=== PATIENT | female | born 1960 | race Caucasian/White ===

== ENCOUNTER 2022-10-30 10:33 | Emergency (ER) | payer BC ==
[2022-10-30] MEDS ORDERED: Aspirin 81 MG Tab.Chew PO ONE (11:43)
[2022-10-30 12:03] LABS: ESTIMATED GFR 16 mL/min (>60)
[2022-10-30] MEDS: Sodium Chloride 0.9% 250 ML IV SCH ×2 (12:45→16:45)
[2022-10-30] MEDS ORDERED: Acetaminophen 325 MG Tab PO ONE (17:03)
[2022-10-30] MEDS ORDERED: Acetaminophen 500 MG Tab PO ONE (17:06)
[2022-10-30] MEDS ORDERED: amLODIPine 5 MG Tab PO ONE (17:24)
[2022-10-30 17:41] VITALS: BP 177/73; PULSE 117
== END 2022-10-30 16:00 ==
LOC: FB.ED 10:33
DX: N39.0 Urinary tract infection, site not specified (principal); D64.9 Anemia, unspecified; E88.09 Other disorders of plasma-protein metabolism, not elsewhere classified; C64.9 Malignant neoplasm of unspecified kidney, except renal pelvis; I12.9 Hypertensive chronic kidney disease with stage 1 through stage 4 chronic kidney disease, or unspecified chronic kidney disease; E11.22 Type 2 diabetes mellitus with diabetic chronic kidney disease; N18.9 Chronic kidney disease, unspecified; N17.9 Acute kidney failure, unspecified; E78.00 Pure hypercholesterolemia, unspecified; Z79.4 Long term (current) use of insulin; Z79.899 Other long term (current) drug therapy
CPT/HCPCS: 36415; 36430; 80053; 86850; 86900; 86901; 86920; 86922; 99285; A9270-GY; J7050; P9016

== ENCOUNTER 2023-03-21 21:05 | Observation (INO) | payer BC ==
[2023-03-21] MEDS ORDERED: Sodium Chloride 0.9% 1,000 ML IV ONE (21:50)
[2023-03-21 22:08] LABS: BASOPHILS ABSOLUTE AUTO 0.1 x10-3/uL (0.0-0.1); BASOPHILS PERCENT AUTO 0.8 % (0.2-1.5); EOSINOPHILS ABSOLUTE AUTO 0.1 x10-3/uL (0.0-0.8); EOSINOPHILS PERCENT AUTO 1.3 % (0.6-8.1); HEMATOCRIT 27.7 % (34.2-48.2); HEMOGLOBIN 9.1 g/dL (11.4-15.5); LYMPHOCYTES ABSOLUTE AUTO 1.4 x10-3/uL (1.0-4.4); LYMPHOCYTES PERCENT AUTO 21.9 % (18.4-52.1); MEAN CORPUSCULAR HEMOGLOBIN 26.4 pg (23.9-33.9); MEAN CORPUSCULAR VOLUME 79.9 fL (76.7-100.5); MEAN PLATELET VOLUME 8.5 fL (7.1-12.4); MONOCYTES ABSOLUTE AUTO 0.6 x10-3/uL (0.3-1.0); MONOCYTES PERCENT AUTO 9.1 % (4.4-15.7); NEUTROPHILS ABSOLUTE AUTO 4.4 x10-3/uL (1.5-6.3); NEUTROPHILS PERCENT AUTO 66.9 % (30.8-76.2); PLATELET COUNT,PLT 163 x10(3)uL (151-488); RED BLOOD CELL COUNT 3.46 x10(6)uL (3.60-5.20); RED CELL DISTRIBUTION WIDTH 22.8 % (12.3-16.5); WHITE BLOOD CELL COUNT,WBC 6.6 x10-3/uL (3.0-10.3)
[2023-03-21 22:18] LABS: A/G RATIO 0.6; ALANINE AMINOTRANSFERASE,ALT 21 U/L (12-36); ALBUMIN 2.8 g/dL (3.2-4.6); ALKALINE PHOSPHATASE 84 IU/L (56-112); ASPARTATE AMNIOTRANSFERASE,AST 22 IU/L (5-25); BILIRUBIN TOTAL 0.4 mg/dL (0.1-1.3); BLOOD UREA NITROGEN,BUN 41 mg/dL (7-18); BUN/CREATININE RATIO 12.8 (9-20); CALCIUM 9.3 mg/dL (8.6-10.2); CARBON DIOXIDE,CO2 27 mmol/L (21-32); CHLORIDE,CL 101 mmol/L (100-110); CREATININE 3.2 mg/dL (0.55-1.02); EST CRCL DRUG DOSING (CG) 14.94 mL/min; ESTIMATED GFR 16 mL/min (>60); GLUCOSE RANDOM 100 mg/dL (80-116); POTASSIUM,K 4.4 mmol/L (3.5-5.3); PROTEIN TOTAL,TP 7.5 g/dL (6.0-8.0); SODIUM,NA 138 mmol/L (135-145)
[2023-03-21 23:05] LABS: BILIRUBIN,URINE NEGATIVE (NEGATIVE); GLUCOSE,URINE NORMAL (NORMAL); KETONES,URINE NEGATIVE (NEGATIVE); LEUKOCYTE ESTERASE,URINE LARGE (NEGATIVE); NITRITE,URINE NEGATIVE (NEGATIVE); OCCULT BLOOD,URINE LARGE (NEGATIVE); PROTEIN,URINE NEGATIVE (NEGATIVE); UROBILINOGEN,URINE NORMAL (NEGATIVE)
[2023-03-21 23:08] LABS: APPEARANCE,URINE SLIGHTLY CLOUDY (CLEAR); BACTERIA,URINE FEW (NS); COLOR,URINE YELLOW (YELLOW); SQUAMOUS EPITHELIAL CELLS,UR MODERATE (NS,R,O); WBC,URINE 40-50 (0-5)
[2023-03-22] MEDS ORDERED: D5 1/2 NS w/ 20 mEq/L KCl 1,000 ML IV SCH (00:15)
[2023-03-22] MEDS ORDERED: Dextrose 5%-0.45% NaCl 1,000 ML IV SCH (00:15)
[2023-03-22] MEDS ORDERED: Acetaminophen 325 MG Tab PO PRN (00:38)
[2023-03-22] MEDS ORDERED: Magnesium Hydroxide 400 MG/5 ML Susp 30 ML Cup PO PRN (00:38)
[2023-03-22] MEDS ORDERED: Insulin Glargine,Human Rec. Analog 100 Units/ML 3 ML Pen SUBCUT ONE ×2 (01:20→01:49)
[2023-03-22 06:34] LABS: BLOOD UREA NITROGEN,BUN 37 mg/dL (7-18); BUN/CREATININE RATIO 12.8 (9-20); CALCIUM 8.7 mg/dL (8.6-10.2); CARBON DIOXIDE,CO2 25 mmol/L (21-32); CHLORIDE,CL 104 mmol/L (100-110); EST CRCL DRUG DOSING (CG) 16.11 mL/min; ESTIMATED GFR 18 mL/min (>60); GLUCOSE RANDOM 167 mg/dL (80-116); POTASSIUM,K 4.1 mmol/L (3.5-5.3); SODIUM,NA 139 mmol/L (135-145)
[2023-03-22 06:45] LABS: CREATININE 2.9 mg/dL (0.55-1.02)
[2023-03-22] MEDS ORDERED: Levothyroxine 100 MCG Tab PO SCH (07:30)
[2023-03-22 08:30] VITALS: BP 154/72; PULSE 93
[2023-03-22] MEDS ORDERED: Sodium Chloride 0.9% 1,000 ML IV ONE (08:45)
[2023-03-22] MEDS ORDERED: PAZOPANIB HCL 200 MG PO SCH (09:00)
[2023-03-22] MEDS ORDERED: Simvastatin 20 MG Tab PO SCH (09:00)
[2023-03-22 10:24] LABS: BLOOD UREA NITROGEN,BUN 34 mg/dL (7-18); BUN/CREATININE RATIO 12.1 (9-20); CALCIUM 8.4 mg/dL (8.6-10.2); CARBON DIOXIDE,CO2 25 mmol/L (21-32); CHLORIDE,CL 105 mmol/L (100-110); EST CRCL DRUG DOSING (CG) 16.69 mL/min; ESTIMATED GFR 19 mL/min (>60); GLUCOSE RANDOM 206 mg/dL (80-116); POTASSIUM,K 4.1 mmol/L (3.5-5.3); SODIUM,NA 138 mmol/L (135-145)
[2023-03-22 10:26] LABS: CREATININE 2.8 mg/dL (0.55-1.02)
[2023-03-22] MEDS ORDERED: Insulin Glargine,Human Rec. Analog 100 Units/ML 3 ML Pen SUBCUT SCH (21:00)
== END 2023-03-22 11:25 | disposition home or self-care (01) ==
LOC: FB.ED 21:05 → FB.MS 23:49
PROVIDERS: ADMIT Family Medicine; ATTEND Family Medicine
DX: N17.9 Acute kidney failure, unspecified (principal); I12.9 Hypertensive chronic kidney disease with stage 1 through stage 4 chronic kidney disease, or unspecified chronic kidney disease; E11.22 Type 2 diabetes mellitus with diabetic chronic kidney disease; N18.32 Chronic kidney disease, stage 3b; N14.11 Contrast-induced nephropathy; T50.8X5A Adverse effect of diagnostic agents, initial encounter; E88.09 Other disorders of plasma-protein metabolism, not elsewhere classified; N39.0 Urinary tract infection, site not specified; E78.00 Pure hypercholesterolemia, unspecified; Z88.1 Allergy status to other antibiotic agents; Z79.4 Long term (current) use of insulin; Z79.890 Hormone replacement therapy; Z79.899 Other long term (current) drug therapy; C64.9 Malignant neoplasm of unspecified kidney, except renal pelvis; Z79.84 Long term (current) use of oral hypoglycemic drugs
CPT/HCPCS: 36415; 80048; 80053; 81001; 83735; 85025; 86140; 87086; 96360; 96361; 99284; A9270; G0378; J1815; J7030; J7042; 99222; 99285